=== PATIENT | male | born 1960 | race Caucasian/White ===

== ENCOUNTER 2017-07-15 14:15 | Emergency (ER) | payer BC ==
[2017-07-15 15:01] VITALS: O2SAT 99
--- NOTE | 2017-07-15 15:18 | C.PDOC ---
History Of Present Illness SP NEEDLE STICK THIS MORNING INJURY BASE R THUMB AND 3 FINGER. PS CHANGING GARBAGE AT HIS JOB AND WAS POKED W USED DIABETIC NEEDLE. PS IMMEDIATELY SQUEEZED OUT BLOOD AND WASHED WOUND. PS HIS BOSS TALKED TO ATG ARCHITECT OF THE USED NEEDLE WHO STATED HAS HO DM ONLY. UNK HIV STATUS OF NEEDLE ATG ARCHITECT. DENIES OTHER ASSOC INJURY EXAM NONTOXIC NAD SKIN +NEEDLESTICK BASE R THUMB THENAR, TIP R 3 FINGER. NO ACTIVE BLEED EXT AROM WO DIFF, NO SWELL DEFORM Time Seen by Provider: 07/15/17 15:15 Chief Complaint (Nursing): Needle Stick History Per: Patient History/Exam Limitations: no limitations Onset/Duration Of Symptoms: Sudden Onset ([employer]) Past Medical History Reviewed: Historical Data, Nursing Documentation, Vital Signs Vital Signs: Last Vital Signs Temp 97.9 F 07/15/17 15:25 Pulse 69 07/15/17 15:25 Resp 20 07/15/17 15:25 BP 122/77 07/15/17 15:25 Pulse Ox 99 07/15/17 15:39 - Medical History PMH: Gastritis, Gall Bladder Disease Family History: States: No Known Family Hx - Social History Hx Alcohol Use: No Hx Substance Use: No - Immunization History Hx Tetanus Toxoid Vaccination: No Hx Influenza Vaccination: No Review Of Systems Except As Marked, All Systems Reviewed And Found Negative. Cardiovascular: Negative for: Chest Pain Respiratory: Negative for: Shortness of Breath Gastrointestinal: Negative for: Nausea, Vomiting Musculoskeletal: Positive for: Other ((+) base of right thumb and 3 finger). Negative for: Hand Pain Neurological: Negative for: Weakness, Numbness Physical Exam - Physical Exam Appears: Non-toxic, No Acute Distress Skin: Warm, Dry, No Rash, Other ((+) needel stick to the base of right thumn thenar, tip right 3rd finger, no active bleeding') Oral Mucosa: Moist Respiratory: Normal Breath Sounds Extremity: Normal ROM, No Tenderness, Capillary Refill (<2 secs), No Swelling Neurological/Psych: Oriented x3, Normal Speech, Normal Motor ED Course And Treatment O2 Sat by Pulse Oximetry: 99 (RA) Pulse Ox Interpretation: Normal - Physician Consult Information Time Consulting Physician Contacted: 15:36 Physician Contacted: Hailey Jewell Outcome Of Conversation: AWARE OF ER FINDINGS AND AGREES W PLAN. WILL FU FOR HIV TRACKING Medical Decision Making Medical Decision Making: PLAN: * CBC * CMP * Hepatitis Panel * HIV * Urinalysis * Augmentin PO * Tivicay PO * Truvada PO * Tetanus IM Disposition Counseled Patient/Family Regarding: Diagnosis, Need For Followup, Rx Given - Disposition Referrals: Hailey Jewell MD [Staff Provider] - Disposition: HOME/ ROUTINE Disposition Time: 15:37 Prescriptions: Amoxicillin/Clavulanate [Augmentin 500 MG-125 MG] 1 tab PO BID #14 tab Dolutegravir Sodium [Tivicay] 1 tab PO DAILY #27 tab Emtricitabine/Tenofovir Diso [Truvada 200 MG-300 MG] 1 tab PO DAILY #27 tab Instructions: Needle Stick Injuries (ED) Forms: [employer] [employer] (Nauruan), Work Excuse - Clinical Impression Clinical Impression: Needle stick injury - Scribe Statement The provider has reviewed the documentation as recorded by the Scribe Brittany Swanson Provider Attestation: All medical record entries made by the Scribe were at my direction and personally dictated by me. I have reviewed the chart and agree that the record accurately reflects my personal performance of the history, physical exam, medical decision making, and the department course for this patient. I have also personally directed, reviewed, and agree with the discharge instructions and disposition.
[2017-07-15] MEDS ORDERED: Emtricitabine-Tenofovir 200 mg-300 mg Tab PO STA (15:19)
[2017-07-15 15:37] VITALS: BP 122/77; PULSE 69; RESP 20; TEMP 97.9
[2017-07-15] MEDS ORDERED: Tetanus/Diphtheria Toxoids 0.5 ml Syringe IM ONE ×2 (15:37→15:47)
[2017-07-15] MEDS ORDERED: Amoxicillin-Clav 500-125 mg Tab PO STA (15:37)
[2017-07-15 15:55] LABS: BASO # 0.1 K/uL (0.0-0.2); BASO % 0.6 % (0.0-2.0); EOS # 0.3 K/uL (0.0-0.7); EOS % 2.8 % (0.0-4.0); HEMOGLOBIN 15.1 g/dL (12.0-18.0); LYMPH # 2.6 K/uL (1.0-4.3); MEAN CELL VOLUME 93.1 fL (80.0-94.0); MEAN CORPUSCULAR HEMOGLOBIN 32.1 pg (27.0-31.0); MEAN CORPUSCULAR HGB CONC 34.5 g/dL (33.0-37.0); MONO # 0.7 K/uL (0.0-0.8); MONO % 7.7 % (0.0-10.0); NEUT # 5.4 K/uL (1.8-7.0); NEUT % 59.9 % (50.0-75.0); RBC 4.71 Mil/uL (4.40-5.90); RED CELL DISTRIBUTION WIDTH 13.7 % (11.5-14.5)
[2017-07-15 16:06] LABS: ALB/GLOB RATIO 1.4 (1.0-2.1); ALBUMIN 4.5 g/dL (3.5-5.0); ALT/SGPT 36 U/L (21-72); AMYLASE 102 U/L (30-110); AST/SGOT 34 U/L (17-59); BLOOD UREA NITROGEN 20 mg/dL (9-20); CALCIUM 9.1 mg/dl (8.6-10.4); GFR AFRICAN-AMERICAN > 60; GFR NON-AFRICAN AMERICAN > 60
[2017-07-15 16:10] LABS: URINE BACTERIA RARE (<OCC); URINE BILIRUBIN NEGATIVE (NEGATIVE); URINE CLARITY Clear (Clear); URINE COLOR Yellow (YELLOW); URINE GLUCOSE (UA) NORMAL (Normal); URINE LEUKOCYTE ESTERASE NEG Leu/uL (Negative); URINE NITRATE NEGATIVE (NEGATIVE); URINE PROTEIN NEGATIVE (NEGATIVE)
[2017-07-15 16:11] LABS: URINE BLOOD 1+ (NEGATIVE)
[2017-07-15 16:36] LABS: HEPATITIS B SURFACE AG NEGATIVE (NEGATIVE)
[2017-07-15 16:41] LABS: HEPATITIS A IGM NEGATIVE (NEGATIVE); HEPATITIS B CORE AB Negative (NEGATIVE)
[2017-07-15 16:53] LABS: HEPATITIS C ANTIBODY Negative (NEGATIVE)
== END 2017-07-15 16:06 | disposition home or self-care (01) ==
LOC: C.ER 14:15
DX: S69.91XA Unspecified injury of right wrist, hand and finger(s), initial encounter (principal); W46.0XXA Contact with hypodermic needle, initial encounter; Y92.89 Other specified places as the place of occurrence of the external cause; Y99.0 Civilian activity done for income or pay

== ENCOUNTER 2017-12-25 12:54 | Emergency (ER) | payer MEDICAID, OTHER ==
[2017-12-25 13:03] VITALS: TEMP 98.1
--- NOTE | 2017-12-25 14:12 | RAD ---
PROCEDURE: Left Knee Radiographs. HISTORY: Pain. COMPARISON: None. FINDINGS: BONES: Normal. No fracture. JOINTS: Mild narrowing of medial joint compartment with subchondral sclerosis medial tibial plateau. No articular erosion. Lateral and patellofemoral compartments preserved. JOINT EFFUSION: None. OTHER FINDINGS: None. IMPRESSION: Mild medial osteoarthritis.
--- NOTE | 2017-12-25 14:18 | C.PDOC ---
History Of Present Illness 57-year-old male presents to the ED for evaluation of left knee pain which began earlier today. Patient states he fell at work and hit his left knee on the floor. He states the pain is worse with flexion and extension of the knee and ambulation. Patient denies head injury, loss of consciousness, extremity numbness/weakness. Time Seen by Provider: 12/25/17 13:00 Chief Complaint (Nursing): Lower Extremity Problem/Injury History Per: Patient History/Exam Limitations: no limitations Onset/Duration Of Symptoms: Hrs Current Symptoms Are (Timing): Still Present Severity: Moderate Additional History Per: Patient - Knee Description Of Injury: Fell Past Medical History Reviewed: Historical Data, Nursing Documentation, Vital Signs Vital Signs: Last Vital Signs Temp 98.1 F 12/25/17 13:01 Pulse 77 12/25/17 15:08 Resp 18 12/25/17 15:08 BP 140/75 12/25/17 15:08 Pulse Ox 100 12/25/17 15:14 - Medical History PMH: Gastritis, Gall Bladder Disease Surgical History: No Surg Hx Family History: States: No Known Family Hx - Social History Hx Alcohol Use: No Hx Substance Use: No - Immunization History Hx Tetanus Toxoid Vaccination: No Hx Influenza Vaccination: No Review Of Systems Constitutional: Negative for: Fever, Chills Gastrointestinal: Negative for: Abdominal Pain Musculoskeletal: Positive for: Other (left knee pain ). Negative for: Neck Pain , Back Pain Neurological: Negative for: Weakness, Numbness, Headache, Dizziness, Other ( head injury, LOC ) Physical Exam - Physical Exam Appears: Well, Non-toxic, Other (in mild pain ) Skin: Normal Color, Warm, Dry, No Rash Head: Atraumatic, Normacephalic Eye(s): bilateral: Normal Inspection Oral Mucosa: Moist Neck: Supple Cardiovascular: Rhythm Regular Respiratory: Normal Breath Sounds, No Rales, No Rhonchi, No Wheezing Extremity: Normal ROM, Tenderness (diffuse TTP at left knee ), No Calf Tenderness, Capillary Refill (< 2 sec all digits ), No Deformity, Swelling (mild , to left knee ) Pulses: Left Dorsalis Pedis: Normal, Right Dorsalis Pedis: Normal Neurological/Psych: Oriented x3, Normal Sensation ED Course And Treatment O2 Sat by Pulse Oximetry: 100 (on RA) Pulse Ox Interpretation: Normal Progress Note: Left knee XR ordered and reviewed - negative for acute fx or dislocation. Tylenol PO given. Knee Immobilizer applied by electrophysiology tech, and crutches + instruction given by PT. Reevaluation Time: 14:45 Reassessment Condition: Improved (On reassessment, patient is resting comfortably. He was given Rx for pain medication and instructed to follow up with orthopedics within 1 week. He understands he should return to ED if symptoms worsen.) Disposition Counseled Patient/Family Regarding: Studies Performed, Diagnosis, Need For Followup, Rx Given - Disposition Referrals: Liberty Ding MD [Staff Provider] - [facility] [Outside] Disposition: HOME/ ROUTINE Disposition Time: 14:45 Condition: STABLE Additional Instructions: FOLLOW UP WITH ORTHOPEDIS WITHIN 1 WEEK USE MEDICATION NEEDED FOR PAIN RETURN TO EMERGENCY ROOM IF SYMPTOMS WORSEN SEGUIMIENTO CON ORTOPEDIA DENTRO DE 1 SEMANA USE MEDICAMENTO SEGN SEA NECESARIO PARA DOLOR REGRESE AL ORIN DE EMERGENCIA SI LOS SNTOMAS EMPEORAN Prescriptions: Naproxen 375 mg PO BID PRN #20 tablet PRN Reason: pain Instructions: Knee Sprain (DC) Forms: [employer] (Lao), Work Excuse Print Language: MONGOLIAN - POA Present On Arrival: Falls Or Trauma - Clinical Impression Clinical Impression: Left knee sprain - Scribe Statement The provider has reviewed the documentation as recorded by the Scribe (Basia Morillo) Provider Attestation: All medical record entries made by the Scribe were at my direction and personally dictated by me. I have reviewed the chart and agree that the record accurately reflects my personal performance of the history, physical exam, medical decision making, and the department course for this patient. I have also personally directed, reviewed, and agree with the discharge instructions and disposition.
[2017-12-25 15:10] VITALS: BP 140/75; PULSE 77; RESP 18
[2017-12-25 15:14] VITALS: O2SAT 100
== END 2017-12-25 15:11 | disposition home or self-care (01) ==
LOC: C.ER 12:54
DX: S83.92XA Sprain of unspecified site of left knee, initial encounter (principal); W18.30XA Fall on same level, unspecified, initial encounter; Y92.89 Other specified places as the place of occurrence of the external cause; Y99.8 Other external cause status
CPT/HCPCS: 73562; 97116; 97161; 99285; G8978; G8979; G8980